=== PATIENT | female | born 2000 | race Caucasian/White ===

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

== ENCOUNTER 2022-03-10 01:53 | Emergency (ER) | payer MEDICAID ==
[~2022-03-10] VITALS: Ht 152.4 cm; Wt 75.0 kg
[2022-03-10] MEDS ORDERED: LIDOCAINE/PF 2% 5 ML VIAL ID ONE (04:45)
[2022-03-10 06:23] VITALS: BP 127/81
== END 2022-03-10 06:24 | disposition home or self-care (01) ==
LOC: EMS 01:54
DX: S61.303A Unspecified open wound of left middle finger with damage to nail, initial encounter (principal); Z90.89 Acquired absence of other organs; W22.8XXA Striking against or struck by other objects, initial encounter; Y93.89 Activity, other specified; Y92.89 Other specified places as the place of occurrence of the external cause; Y99.8 Other external cause status
CPT/HCPCS: 11730; 99284; J3490